=== PATIENT | male | born 1970 | race American Indian/Alaskan Native ===

== ENCOUNTER 2017-01-11 16:09 | Emergency (ER) | payer BC ==
[2017-01-11] MEDS ORDERED: CATAPRES PO ONE (18:48)
--- NOTE | 2017-01-11 18:51 | Emergency Department Report ---
Chief Complaint: Headache Stated Complaint: BURCH Time Seen by Provider: 01/11/17 18:49 - HPI History of Present Illness: HTN HPLD CO BURCH OFF LISINOPRIL / HCTZ FOR SEVERAL DAYS BP INC FROM TRIAGE PO CLONIDINE CT LABS - ROS Review of Systems: BURCH OFF MEDS - Exam Vital Signs: Vital Signs 01/11/17 17:00 Temperature 98.5 F Pulse Rate 60 Respiratory 18 Rate Blood Pressure 134/98 O2 Sat by Pulse 100 Oximetry 167/103 Physical Exam: NEURO INTACT BUT W BURCH AND SEEMS TO BE HURTING WILL SCAN ? SCLERAL ICT. WILL DO LABS 18[address] ORDERS PLACED MSE screening note: Focused history and physical exam performed. Due to findings the following was ordered: ED Disposition for MSE Condition: Stable Referrals: PRIMARY CARE, [Primary Care Provider] - 3-5 Days
[2017-01-11 19:22] LABS: Basophils % (Auto) 0.8 % (0.0-1.8); Eosinophils % (Auto) 2.6 % (0.0-4.3); Hematocrit 43.4 % (35.5-45.6); Hemoglobin 14.7 gm/dl (11.8-15.2); Mean Corpuscular HGB Conc 34 % (32-34); Mean Corpuscular Hemoglobin 28 pg (28-32); Mean Corpuscular Volume 81 fl (84-94); Platelet Count 198 K/mm3 (140-440); Red Blood Count 5.34 M/mm3 (3.65-5.03); Red Cell Distribution Width 13.3 % (13.2-15.2); White Blood Count 6.3 K/mm3 (4.5-11.0)
[2017-01-11 19:35] LABS: INR 0.94 (0.87-1.13)
[2017-01-11 19:36] LABS: Partial Thromboplastin Time 31.5 Sec. (24.2-36.6)
[2017-01-11 19:38] LABS: Alanine Aminotransferase 12 units/L (7-56); Albumin 4.1 g/dL (3.9-5); Albumin/Globulin Ratio 1.3 %; Alkaline Phosphatase 46 units/L (35-129); Anion Gap 14 mmol/L; BUN/Creatinine Ratio 11; Bilirubin,Total < 0.20 mg/dL (0.1-1.2); Blood Urea Nitrogen 9 mg/dL (9-20); Calcium 8.9 mg/dL (8.4-10.2); Carbon Dioxide 27 mmol/L (22-30); Chloride 103.9 mmol/L (98-107); Glucose 88 mg/dL (75-100); Potassium 4.5 mmol/L (3.6-5.0); Sodium 140 mmol/L (137-145); Total Protein 7.3 g/dL (6.3-8.2)
--- NOTE | 2017-01-11 20:00 | Cat Scan Report ---
FINAL REPORT EXAM: CT HEAD/BRAIN WO CON HISTORY: Headache TECHNIQUE: Standard unenhanced CT of the head at 5.0 millimeter axial increments. PRIORS: None. FINDINGS: The ventricular system is normal in size and configuration. There is no evidence for parenchymal volume loss. There is no evidence for mass lesion, mass effect, midline shift, acute intracranial hemorrhage, or acute ischemia/ infarction. No evidence for acute skull fracture is seen. No abnormality in the overlying scalp soft tissues is seen. Visualized paranasal sinuses demonstrates mucosal thickening in bilateral ethmoid air cells. IMPRESSION: No acute intracranial process noted. Chronic ethmoid sinusitis
--- NOTE | 2017-01-11 20:20 | Emergency Department Report ---
ED General Adult HPI - General Chief complaint: Headache Stated complaint: BURCH Time Seen by Provider: 01/11/17 18:49 Source: patient Mode of arrival: Ambulatory Limitations: No Limitations - History of Present Illness Initial comments: 46-year-old male past medical history hypertension, hyperlipidemia presents with complaint of need for refills on his prescriptions. Patient also complains of mild headache which has since resolved. Patient states that it started 3 days ago and he felt some sinus pressure which she associated with the headache. Dull but not severe. Patient denies any chest pain palpitations abdominal pain palpitations shortness of breath up or or lower extremity paresthesias facial paresthesias nausea or vomiting blurry vision or dizziness. Patient is awake alert and oriented 3 not in acute distress appears comfortable and accompanied by at bedside. Denies smoking or drug use. Severity scale (0 -10): 5 - Related Data Previous Rx's Medication Instructions Recorded Last Taken Type Acetaminophen 500 mg PO Q8H PRN #30 tablet 01/11/17 Unknown Rx AtorvaSTATin [Lipitor] 20 mg PO QHS #30 tab 01/11/17 Unknown Rx Fluticasone [Flonase] 1 spray NS QDAY PRN #1 bottle 01/11/17 Unknown Rx Lisinopril/Hydrochlorothiazide 1 tab PO QDAY #30 tab 01/11/17 Unknown Rx [Zestoretic 20-25 mg] Loratadine [Claritin] 10 mg PO DAILY #30 tablet 01/11/17 Unknown Rx Allergies Allergy/AdvReac Type Severity Reaction Status Date / Time No Known Allergies Allergy Unverified 01/11/17 17:00 ED Review of Systems ROS: Stated complaint: BURCH Other details as noted in HPI ED Past Medical Hx - Past Medical History Previous Medical History?: No Hx Hypertension: Yes - Surgical History Hx Appendectomy: Yes - Social History Smoking Status: Never Smoker Substance Use Type: None - Medications Home Medications: Home Medications Medication Instructions Recorded Confirmed Last Taken Type Acetaminophen 500 mg PO Q8H PRN #30 tablet 01/11/17 Unknown Rx AtorvaSTATin [Lipitor] 20 mg PO QHS #30 tab 01/11/17 Unknown Rx Fluticasone [Flonase] 1 spray NS QDAY PRN #1 bottle 01/11/17 Unknown Rx Lisinopril/Hydrochlorothiazide 1 tab PO QDAY #30 tab 01/11/17 Unknown Rx [Zestoretic 20-25 mg] Loratadine [Claritin] 10 mg PO DAILY #30 tablet 01/11/17 Unknown Rx ED Physical Exam - General Limitations: No Limitations General appearance: alert, in no apparent distress - Head Head exam: Present: atraumatic, normocephalic - Eye Eye exam: Present: normal appearance, PERRL, EOMI - ENT ENT exam: Present: mucous membranes moist - Neck Neck exam: Present: normal inspection, full ROM - Respiratory Respiratory exam: Present: normal lung sounds bilaterally. Absent: respiratory distress - Cardiovascular Cardiovascular Exam: Present: regular rate, normal rhythm. Absent: systolic murmur, diastolic murmur, rubs, gallop - GI/Abdominal GI/Abdominal exam: Present: soft, normal bowel sounds - Rectal Rectal exam: Present: deferred - Extremities Exam Extremities exam: Present: normal inspection - Back Exam Back exam: Present: normal inspection - Neurological Exam Neurological exam: Present: alert, oriented X3, CN II-XII intact, normal gait - Expanded Neurological Exam Expanded Patient oriented to: Present: person, place, time Cranial nerves: EOM's Intact: Normal, Facial Sensation: Normal Cerebellar function: Finger to Nose: Normal, Heel to Daniels: Normal, Romberg: Normal Sensory exam: Upper Extremity Light Touch: Normal, Lower Extremity Light Touch: Normal Motor strength exam: RUE: 5, LUE: 5, RLE: 5, LLE: 5 Best Eye Response ([place]): (4) open spontaneously Best Motor Response ([place]): (6) obeys commands Best Verbal Response ([place]): (5) oriented [place] Total: 15 - Psychiatric Psychiatric exam: Present: normal affect, normal mood - Skin Skin exam: Present: warm, dry, intact, normal color. Absent: rash ED Course Vital Signs 01/11/17 01/11/17 01/11/17 17:00 19:18 19:19 Temperature 98.5 F 97.8 F Pulse Rate 60 57 L 57 L Respiratory 18 16 Rate Blood Pressure 134/98 158/94 Blood Pressure 158/94 [Right] O2 Sat by Pulse 100 Oximetry ED Medical Decision Making - Lab Data Result diagrams: 01/11/17 19:05 01/11/17 19:05 - Medical Decision Making A/P: Hypertension, sinusitis 1-antihistamines, nasal decongestants 2-refill on hypertension medicines 3-follow up with primary care. Patient states he has an appointment this week. Labs and head CT unremarkable. Cranial nerves 2, 3, 4, 5, 6, 7, 8,10, 11, 12 intact on clinical exam, patient is fully lucid awake alert and oriented 3 conversant. Denies any upper or lower extremity paresthesias and has 5/5 strength in bilateral upper and lower extremities on clinical exam. Patient denies any chest pain palpitations nausea vomiting shortness of breath abdominal pain dizziness and has minimal to no headache. Headache likely from sinusitis. Critical care attestation.: If time is entered above; I have spent that time in minutes in the direct care of this critically ill patient, excluding procedure time. ED Disposition Clinical Impression: Encounter for medication refill Hypertension Qualifiers: Hypertension type: unspecified Qualified Code(s): I10 - Essential (primary) hypertension Sinusitis Qualifiers: Sinusitis location: frontal Chronicity: acute Recurrence: non-recurrent Qualified Code(s): J01.10 - Acute frontal sinusitis, unspecified Disposition: DC- TO HOME OR SELFCARE Is pt being admited?: No Does the pt Need Aspirin: No Condition: Stable Instructions: Hypertension (ED), Sinusitis (ED) Prescriptions: AtorvaSTATin [Lipitor] 20 mg PO QHS #30 tab Acetaminophen 500 mg PO Q8H PRN #30 tablet PRN Reason: Headache Fluticasone [Flonase] 1 spray NS QDAY PRN #1 bottle PRN Reason: Congestion Lisinopril/Hydrochlorothiazide [Zestoretic 20-25 mg] 1 tab PO QDAY #30 tab Loratadine [Claritin] 10 mg PO DAILY #30 tablet Referrals: [facility] [Outside] - 3-5 Days [facility] [Outside] - 3-5 Days Forms: Accompanied Note, Work/School Release Form(ED) Time of Disposition: 20:34
[2017-01-11 20:32] VITALS: BP 147/93
[2017-01-11] MEDS ORDERED: TYLENOL PO ONE (20:34)
== END 2017-01-11 20:47 | disposition home or self-care (01) ==
LOC: ED 16:09
DX: Z76.0 Encounter for issue of repeat prescription (principal); I10 Essential (primary) hypertension; J01.10 Acute frontal sinusitis, unspecified
CPT/HCPCS: 36415; 70450; 80053; 85025; 85610; 85730

== ENCOUNTER 2018-12-01 06:27 | Emergency (ER) | payer BC, OTHER ==
[2018-12-01] MEDS ORDERED: TORADOL IM ONE (08:23)
--- NOTE | 2018-12-01 08:28 | Emergency Department Report ---
HPI - General Chief Complaint: Pain General Time Seen by Provider: 12/01/18 08:09 - HPI HPI: 47-year-old -[place] male presents to the emergency department with complaint of some pain around and behind the right eye since last night. He denies any pain to the eye itself, vision change, eye drainage or tearing. He denies any ear pain, sore throat, fever, headache. He has not taken anything for his symptoms prior to presentation. He has a primary care physician but has not seen them regarding his symptoms. Pain seems to worsen when he leans down. ED Past Medical Hx - Past Medical History Previous Medical History?: Yes Hx Hypertension: Yes - Surgical History Past Surgical History?: Yes Hx Appendectomy: Yes - Social History Smoking Status: Never Smoker Substance Use Type: None - Medications Home Medications: Home Medications Medication Instructions Recorded Confirmed Last Taken Type Acetaminophen 500 mg PO Q8H PRN #30 tablet 01/11/17 Unknown Rx AtorvaSTATin [Lipitor] 20 mg PO QHS #30 tab 01/11/17 Unknown Rx Fluticasone [Flonase] 1 spray NS QDAY PRN #1 bottle 01/11/17 Unknown Rx Lisinopril/Hydrochlorothiazide 1 tab PO QDAY #30 tab 01/11/17 Unknown Rx [Zestoretic 20-25 mg] Loratadine [Claritin] 10 mg PO DAILY #30 tablet 01/11/17 Unknown Rx Fluticasone [Flonase] 1 spray NS QDAY #1 bottle 12/01/18 Unknown Rx ED Review of Systems ROS: Stated complaint: RT SIDE FACIAL PAIN Other details as noted in HPI Comment: All other systems reviewed and negative Constitutional: denies: chills, fever Eyes: denies: eye pain, eye discharge, vision change ENT: denies: ear pain, throat pain Skin: denies: rash, lesions Neurological: denies: headache, weakness, numbness Physical Exam - Physical Exam Vital Signs: Vital Signs 12/01/18 06:32 Temperature 98.1 F Pulse Rate 69 Respiratory 18 Rate Blood Pressure 153/90 O2 Sat by Pulse 96 Oximetry Physical Exam: GENERAL: The patient is well-developed well-nourished. HENT: Normocephalic. Atraumatic. Patient has moist mucous membranes. EYES: Extraocular motions are intact. Pupils equal reactive to light bilaterally. No nystagmus. NECK: Supple. Trachea is midline. ABDOMEN: There is no abdominal distention. SKIN: Skin is warm and dry. NEURO: The patient is awake, alert, and oriented. The patient is cooperative. The patient has no focal neurologic deficits. Normal speech. Cranial nerves II through XII grossly intact. MUSCULOSKELETAL: There is no tenderness or deformity. There is no limitation range of motion. There is no evidence of acute injury. ED Course Vital Signs 12/01/18 06:32 Temperature 98.1 F Pulse Rate 69 Respiratory 18 Rate Blood Pressure 153/90 O2 Sat by Pulse 96 Oximetry ED Medical Decision Making - Medical Decision Making Patient presents with the complaint of some pain to the right side of face, around the right eye, since last night. He denies any actual eye pain, vision change or headache but does say that there is a little bit of pain behind the eye. However most of the pain is around the orbit. There are no signs of any erythema, lesions, swelling. He does not have any focal, motor or sensory deficits and his cranial nerves are intact. He was given a dose of Toradol and upon reevaluation he is feeling improved. He'll be discharged home to follow up with primary care and will return to the ER with any worsening of his symptoms or any acute distress. He has been prescribed some Flonase in case this is a sinus issue. - Differential Diagnosis sinusitis, cellulitis, trigeminal neuralgia, herpes zoster Critical Care Time: No Critical care attestation.: If time is entered above; I have spent that time in minutes in the direct care of this critically ill patient, excluding procedure time. ED Disposition Clinical Impression: Facial pain Disposition: - TO HOME OR SELFCARE Is pt being admited?: No Condition: Stable Additional Instructions: You were seen today for some right-sided facial pain, around your eye. Please follow-up with a primary care physician in the next few days. Return to the emergency Department with any worsening of your symptoms, involvement of the eye, new pain, development of any weakness, numbness or neurological deficits, or with any acute distress. Prescriptions: Fluticasone [Flonase] 1 spray NS QDAY #1 bottle Referrals: PRIMARY CARE, [Primary Care Provider] - 2-3 Days Time of Disposition: 09:15
[2018-12-01 09:53] VITALS: BP 124/80
== END 2018-12-01 09:35 | disposition home or self-care (01) ==
LOC: ED 06:27
DX: H57.11 Ocular pain, right eye (principal); R51 Headache; I10 Essential (primary) hypertension; Z90.49 Acquired absence of other specified parts of digestive tract; Z79.899 Other long term (current) drug therapy
CPT/HCPCS: 96372; 99282; J1885